=== PATIENT | female | born 1945 | race Two or more races ===

== ENCOUNTER 2018-01-21 12:36 | Outpatient (CLI) | payer OTHER | END 2018-01-21 12:48 | disposition home or self-care (01) | LOC: NUCLEAR 12:36 | DX: M81.0 Age-related osteoporosis without current pathological fracture (principal) ==

== ENCOUNTER 2018-03-04 15:22 | Outpatient (CLI) | payer OTHER | END 2018-03-04 16:30 | disposition home or self-care (01) | LOC: RAD 501 15:22 | DX: D68.8 Other specified coagulation defects (principal); H25.9 Unspecified age-related cataract ==

== ENCOUNTER 2018-04-17 12:43 | Outpatient (CLI) | payer OTHER | END 2018-04-17 14:24 | disposition home or self-care (01) | LOC: RAD 501 12:43 | DX: M46.1 Sacroiliitis, not elsewhere classified (principal) ==

== ENCOUNTER 2019-05-18 09:53 | Outpatient (CLI) | payer OTHER | END 2019-05-18 09:59 | disposition home or self-care (01) | LOC: RAD 09:53 | DX: M46.47 Discitis, unspecified, lumbosacral region (principal) ==

== ENCOUNTER 2020-04-18 13:15 | Outpatient (CLI) | payer OTHER | END 2020-04-18 13:19 | disposition home or self-care (01) | LOC: RAD 13:15 | DX: M25.562 Pain in left knee (principal); M54.2 Cervicalgia ==

== ENCOUNTER 2021-05-01 12:53 | Outpatient (CLI) | payer OTHER | END 2021-05-01 12:54 | disposition home or self-care (01) | LOC: NUCLEAR 12:53 | PROVIDERS: ATTEND Obstetrics & Gynecology | DX: M81.0 Age-related osteoporosis without current pathological fracture (principal) ==

== ENCOUNTER 2023-01-23 08:26 | Outpatient (CLI) | payer OTHER | END 2023-01-23 08:38 | disposition home or self-care (01) | LOC: SONOGRAMA 08:26 | PROVIDERS: ATTEND Internal Medicine Rheumatology | DX: M19.041 Primary osteoarthritis, right hand (principal); M19.042 Primary osteoarthritis, left hand; M65.811 Other synovitis and tenosynovitis, right shoulder ==

== ENCOUNTER 2023-02-03 13:33 | Outpatient (CLI) | payer OTHER | END 2023-02-03 13:37 | disposition home or self-care (01) | LOC: RAD 13:33 | PROVIDERS: ATTEND Internal Medicine Cardiovascular Disease | DX: M12.9 Arthropathy, unspecified (principal) ==

== ENCOUNTER 2023-05-01 12:56 | Outpatient (CLI) | payer OTHER | END 2023-05-01 12:58 | disposition home or self-care (01) | LOC: NUCLEAR 12:56 | PROVIDERS: ATTEND Internal Medicine Rheumatology | DX: M81.0 Age-related osteoporosis without current pathological fracture (principal) ==

== ENCOUNTER 2023-12-25 11:21 | Outpatient (CLI) | payer OTHER | END 2023-12-25 11:30 | disposition home or self-care (01) | LOC: RAD 11:21 | PROVIDERS: ATTEND Orthopaedic Surgery | DX: M75.122 Complete rotator cuff tear or rupture of left shoulder, not specified as traumatic (principal) ==

== ENCOUNTER 2024-07-05 09:29 | Outpatient (CLI) | payer OTHER | END 2024-07-05 09:30 | disposition home or self-care (01) | LOC: RAD 09:29 | DX: R05.1 Acute cough (principal) ==

== ENCOUNTER 2024-12-09 10:50 | Outpatient (CLI) | payer OTHER | END 2024-12-09 10:54 | disposition home or self-care (01) | LOC: RAD 10:50 | PROVIDERS: ATTEND Orthopaedic Surgery | DX: M25.562 Pain in left knee (principal) ==

== ENCOUNTER 2025-05-02 12:21 | Outpatient (CLI) | payer OTHER | END 2025-05-02 12:22 | disposition home or self-care (01) | LOC: NUCLEAR 12:21 | PROVIDERS: ATTEND Internal Medicine Rheumatology | DX: M81.0 Age-related osteoporosis without current pathological fracture (principal) ==